=== PATIENT | female | born 1985 | race Native Hawaiian/Other Pacific Islander ===

== ENCOUNTER 2021-01-08 10:30 | Emergency (ER) | payer SELFPAY ==
[2021-01-08 10:37] VITALS: BP 120/71
--- NOTE | 2021-01-08 10:44 | Emergency Department Report ---
ED ENT HPI - General Chief complaint: Earache Stated complaint: LEFT EAR PAIN Source: patient Mode of arrival: Ambulatory Limitations: No Limitations - History of Present Illness Initial comments: Patient is a 35-year-old female presents emergency room complaints of left-sided ear pain that began yesterday. She denies any drainage from the ear, anything getting inside the ear, hearing loss, fever, nausea, vomiting, diarrhea, cough, shortness of breath, any other symptoms. No past medical history. No allergies medications. She is currently on her menstrual cycle. - Related Data Previous Rx's Medication Instructions Recorded Last Taken Type Amoxicillin [Amoxicillin TAB] 875 mg PO BID 10 Days #20 tablet 01/08/21 Unknown Rx Ibuprofen [Motrin 600 MG tab] 600 mg PO Q8H PRN #20 tablet 01/08/21 Unknown Rx Allergies Allergy/AdvReac Type Severity Reaction Status Date / Time No Known Allergies Allergy Unverified 01/08/21 10:35 ED Dental HPI - General Chief complaint: Earache Stated complaint: LEFT EAR PAIN Source: patient Mode of arrival: Ambulatory Limitations: No Limitations - Related Data Previous Rx's Medication Instructions Recorded Last Taken Type Amoxicillin [Amoxicillin TAB] 875 mg PO BID 10 Days #20 tablet 01/08/21 Unknown Rx Ibuprofen [Motrin 600 MG tab] 600 mg PO Q8H PRN #20 tablet 01/08/21 Unknown Rx Allergies Allergy/AdvReac Type Severity Reaction Status Date / Time No Known Allergies Allergy Unverified 01/08/21 10:35 ED Review of Systems ROS: Stated complaint: LEFT EAR PAIN Other details as noted in HPI Comment: All other systems reviewed and negative ED Past Medical Hx - Past Medical History Previous Medical History?: No - Surgical History Past Surgical History?: No - Social History Smoking Status: Never Smoker - Medications Home Medications: Home Medications Medication Instructions Recorded Confirmed Last Taken Type Amoxicillin [Amoxicillin TAB] 875 mg PO BID 10 Days #20 tablet 01/08/21 Unknown Rx Ibuprofen [Motrin 600 MG tab] 600 mg PO Q8H PRN #20 tablet 01/08/21 Unknown Rx ED Physical Exam - General Limitations: No Limitations General appearance: alert, in no apparent distress - Head Head exam: Present: atraumatic, normocephalic - Eye Eye exam: Present: normal appearance - ENT ENT exam: Present: mucous membranes moist, other (right TM and canal are normal in appearance, left canal is normal, Left TM is erythematous ) - Neurological Exam Neurological exam: Present: alert, oriented X3 - Psychiatric Psychiatric exam: Present: normal affect, normal mood - Skin Skin exam: Present: warm, dry, intact ED Course Vital Signs 01/08/21 10:35 Temperature 98.1 F Pulse Rate 73 Respiratory 18 Rate Blood Pressure 120/71 O2 Sat by Pulse 99 Oximetry ED Medical Decision Making - Medical Decision Making Patient is a 35-year-old female presents emergency room complaints of left-sided ear pain that began yesterday. She denies any drainage from the ear, anything getting inside the ear, hearing loss, fever, nausea, vomiting, diarrhea, cough, shortness of breath, any other symptoms. No past medical history. No allergies medications. She is currently on her menstrual cycle. Vitals are normal. On exam:right TM and canal are normal in appearance, left canal is normal, Left TM is erythematous. Examination appears consistent with acute otitis media, no signs of perforation at this time. Patient given prescription for medications. Advised patient Please take medication as prescribed to completion. Increase your water intake. Follow-up with your primary care doctor for ear recheck. Return to emergency room for any new or worsening symptoms. Critical care attestation.: If time is entered above; I have spent that time in minutes in the direct care of this critically ill patient, excluding procedure time. ED Disposition Clinical Impression: Otitis media Qualifiers: Otitis media type: suppurative Chronicity: acute Laterality: left Recurrence: non-recurrent Spontaneous tympanic membrane rupture: without spontaneous rupture Qualified Code(s): H66.002 - Acute suppurative otitis media without spontaneous rupture of ear drum, left ear Disposition: DC-01 TO HOME OR SELFCARE Is pt being admited?: No Does the pt Need Aspirin: No Condition: Stable Instructions: Otitis Media, Adult, [id number] Additional Instructions: Please take medication as prescribed to completion. Increase your water intake. Follow-up with your primary care doctor for ear recheck. Return to emergency room for any new or worsening symptoms. [place] la medicacin prescrita hasta completarla. Incrementa tu ingesta de agua. Car un seguimiento con mckoy mdico de atencin primaria para volver a revisar el odo. Regrese a la hazel de emergencias por cualquier sntoma nuevo o que empeore. Prescriptions: Amoxicillin [Amoxicillin TAB] 875 mg PO BID 10 Days #20 tablet Ibuprofen [Motrin 600 MG tab] 600 mg PO Q8H PRN #20 tablet PRN Reason: Pain Referrals: HOA BATISTA MD [Staff Physician] - 2-3 Days MANOLO DANIEL MD [Staff Physician] - 2-3 Days (urdu speaking) Time of Disposition: 10:42 Print Language: KOREAN
== END 2021-01-08 11:32 | disposition home or self-care (01) ==
LOC: ED 10:30
DX: H66.92 Otitis media, unspecified, left ear (principal); Z79.899 Other long term (current) drug therapy
CPT/HCPCS: 99281